=== PATIENT | female | born 1970 | race American Indian/Alaskan Native ===

== ENCOUNTER 2021-04-29 08:12 | Day surgery (SDC) | payer MEDICARE ==
[~2021-04-29 08:12] MED LIST: ACETAMINOPHEN 500 MG TAB PO SCH; LACTATED RINGERS 1,000 ML IV SCH; MIDAZOLAM 2 MG/2 ML INJ IV NR
--- NOTE | 2021-04-29 08:57 | History and Physical Report ---
History of Present Illness Date of examination: 04/29/21 Date of admission: 04/29/21 Chief complaint: post-menopausal bleeding and endometrial polyps. History of present illness: [age] yo AFRO-NAMIBIAN FEMALE . HX OF PMB. UNABLE TO DO HYSTEROSCOPY IN OFFICE.PT HERE FOR OUTPT SX FOR HYSTEROSCOPY AND D&CC. NO ALLERGIES. HX OF BILATERAL CARPAL TUNNEL SX. HX OF HYSTEROSCOPIC REMOVAL OF ENDOMETRIAL POLYPS IN PAST. PT GAVE INFORMED CONSENT FOR HER SX. Past History Past Medical History: no pertinent history, hypertension Past Surgical History: breast surgery, other (BILATERAL CARPAL TUNNEL SX. 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 (HYSTEROSCOPIC REMOVAL OF POLYPS ) Family/Genetic History: none Social history: single Medications and Allergies Allergies Allergy/AdvReac Type Severity Reaction Status Date / Time No Known Allergies Allergy Unverified 04/24/21 18:23 Home Medications Medication Instructions Recorded Confirmed Last Taken Type Bisoprolol Fumarate 5 mg PO DAILY 04/24/21 04/24/21 Unknown History amLODIPine [Norvasc] 10 mg PO DAILY 04/24/21 04/24/21 Unknown History Active Meds: Active Medications Acetaminophen (Acetaminophen 500 Mg Tab) 1,000 mg PO PREOP KAHLIL Stop: 04/29/21 23:00 Lactated Ringer's (Lactated Ringers) 1,000 mls @ 100 mls/hr IV DIRECT KAHLIL Stop: 04/29/21 23:59 Midazolam HCl (Midazolam 2 Mg/2 Ml Inj) 2 mg IV PREOP NR Stop: 04/29/21 23:00 Review of Systems All systems: negative - Vital Signs Vital signs: Vital Signs Temp Pulse Resp BP Pulse Ox 98.2 F 61 20 120/82 99 04/28/21 09:30 04/28/21 09:30 04/28/21 09:30 04/28/21 09:30 04/28/21 09:30 Temp Pulse Resp BP Pulse Ox 98.2 F 61 20 120/82 99 04/28/21 09:30 04/28/21 09:30 04/28/21 09:30 04/28/21 09:30 04/28/21 09:30 - Physical Exam Breasts: Cardiovascular: Regular rate, Normal S1, Normal S2 Abdomen: Positive: normal appearance, soft, normal bowel sounds, other (OBESE). Negative: distention, tenderness Vulva: both: normal Vagina: Positive: normal moisture. Negative: discharge Cervix: Positive: other (STENOTIC CX.). Negative: lesion, discharge Uterus: Positive: normal size, normal contour Adnexa: both: normal Anus/Rectum: Positive: normal perianal skin, heme negative. Negative: rectal mass, hemorrhoids Extremities: Deep Tendon Reflex Grade: Normal +2 Results All other labs normal. Assessment and Plan PMB WITH POLYPS. PLAN D&C AND DIAGNOSTIC HYSTEROSCOPY.
[2021-04-29] MEDS ORDERED: HYDROmorphone 1 MG/1 ML INJ IV PRN (09:07)
[2021-04-29] MEDS ORDERED: ONDANSETRON 4 MG/2 ML INJ IV PRN (09:07)
--- NOTE | 2021-04-29 09:07 | Anesthesia Consultation ---
Anesthesia Consult and Med Hx Date of service: 04/29/21 - Airway Anesthetic Teeth Evaluation: Good ROM Head & Neck: Adequate Mental/Hyoid Distance: Adequate Mallampati Class: Class II Intubation Access Assessment: Probably Good - Pre-Operative Health Status ASA Pre-Surgery Classification: ASA2 Proposed Anesthetic Plan: General - Pulmonary Hx Smoking: Yes (quit 3 months) Hx Respiratory Symptoms: No Hx Sleep Apnea: No (no current diagosis but has sleep study scheduled) - Cardiovascular System Hx Hypertension: Yes (took amlodipine this morning) Hx Heart Attack/AMI: No - Central Nervous System CVA: No - Endocrine Hx Renal Disease: No Hx Liver Disease: No Hx Insulin Dependent Diabetes: No Hx Non-Insulin Dependent Diabetes: No Hx Thyroid Disease: No - Other Systems Hx Obesity: Yes (BMI 35) - Additional Comments Anesthesia Medical History Comments: No hx anesthetic complications.
--- NOTE | 2021-04-29 09:07 | Anesthesia Day of Surgery ---
Anesthesia Day of Surgery - Day of Surgery Patient Examined: Yes Patient H&P Reviewed: Yes Patient is NPO: Yes
[2021-04-29] MEDS ORDERED: diphenhydrAMINE 50 MG/ML VIAL IV SCH (09:49)
[2021-04-29] MEDS ORDERED: SILVER NITRATE APPLICATOR 1 EA TP ONE (10:31)
[2021-04-29] MEDS ORDERED: HYDROmorphone 1 MG/1 ML INJ ONE (10:35)
[2021-04-29] MEDS ORDERED: propofoL 200 MG/20 ML VIAL IV ONE (10:36)
[2021-04-29] MEDS ORDERED: LIDOCAINE MPF (2%) 20 MG/1 ML VIAL 5 ML ONE (10:36)
[2021-04-29] MEDS ORDERED: dexAMETHasone 20 MG/5 ML VIAL ONE (11:02)
[2021-04-29] MEDS ORDERED: ONDANSETRON 4 MG/2 ML INJ ONE (11:03)
[2021-04-29] MEDS ORDERED: MANNITOL/SORBITOL SOLUTION 3,000 ML IRRIG.SOLN IR ONE (11:12)
[2021-04-29] MEDS ORDERED: KETOROLAC 30 MG/1 ML INJ ONE (11:25)
--- NOTE | 2021-04-29 11:33 | Procedure Note ---
Date of procedure: 04/29/21 Pre-op diagnosis: PMB, ENDOMETRIAL POLYPS Post-op diagnosis: same Procedure: This is Dr. Molina dictating operative report on the patient. Time of surgery was 15 minutes. Preoperative diagnosis postmenopausal bleeding endometrial polyps. Postoperative diagnosis same. Procedure was a diagnostic hysteroscopy exam under anesthesia. Anesthesia was LMA. Estimated blood loss less than 50 cc. Complications we had a perforation of the uterus with the hysteroscope so we could not complete the hysteroscopy. Findings the patient was found to have a slightly enlarged uterus. Because of the perforation were not able to visualize the endometrial cavity. We also could not do a D&C at this time. Procedure patient was taken operating placed in supine position given general anesthetic with LMA. The one-sided speculum placed inside the vagina cervix was grasped with a single-tooth tenaculum then dilated up enough to tolerate a operative hysteroscope. We placed the hysteroscope inside the endocervical cavity and we tried to place the hysteroscope into the endometrial cavity however trying to do this perforated the posterior uterus with the hysteroscope hysteroscopy was terminated were not able to do endometrial inspection and we could not do a D&C on this patient. The patient tolerated procedure well without any difficulties. Anesthesia: other (LMA) Surgeon: FELICITAS MOLINA Estimated blood loss: minimal Pathology: none Condition: stable Disposition: same day
--- NOTE | 2021-04-29 12:46 | Post Anesthesia Evaluation ---
- Post Anesthesia Evaluation Patient Participated: Yes Airway Patent: Yes Stable Respiratory Function: Yes Nausea/Vomiting: No Temp > 96.8F: Yes Pain Manageable: Yes Adequeate Hydration: Yes Anesthesia Complications: No
[2021-04-29 12:51] VITALS: BP 127/80
== END 2021-04-29 13:05 | disposition home or self-care (01) ==
LOC: OR 08:12 → EDBD 10:30 → OR 13:05
DX: N95.0 Postmenopausal bleeding (principal); N84.0 Polyp of corpus uteri; I10 Essential (primary) hypertension; E66.9 Obesity, unspecified; K21.9 Gastro-esophageal reflux disease without esophagitis; M19.90 Unspecified osteoarthritis, unspecified site; F17.210 Nicotine dependence, cigarettes, uncomplicated; Z79.899 Other long term (current) drug therapy; Z98.890 Other specified postprocedural states; Z20.822 Contact with and (suspected) exposure to COVID-19
CPT/HCPCS: 58558; J1100; J1170; J1200; J1885; J2250; J2405; J2704; J7120; U0003

== ENCOUNTER 2021-11-04 23:21 | Emergency (ER) | payer MEDICARE ==
[2021-11-05 00:03] VITALS: BP 116/69
== END 2021-11-05 07:00 | disposition left against medical advice (07) ==
LOC: ED 23:21
DX: H92.09 Otalgia, unspecified ear (principal); Z53.21 Procedure and treatment not carried out due to patient leaving prior to being seen by health care provider

== ENCOUNTER 2022-04-11 08:46 | Emergency (ER) | payer MEDICARE ==
[2022-04-11 09:06] VITALS: BP 111/72
--- NOTE | 2022-04-11 09:44 | XRay Report ---
CHEST 2 VIEWS INDICATION / CLINICAL INFORMATION: short of breath. COMPARISON: None available. FINDINGS: SUPPORT DEVICES: None. HEART / MEDIASTINUM: No significant abnormality. LUNGS / PLEURA: No significant pulmonary or pleural abnormality. No pneumothorax. ADDITIONAL FINDINGS: No significant additional findings. IMPRESSION: 1. No acute findings. Signer Name: Cm Meadows MD Signed: 04/11/2022 9:40 AM Workstation Name: [email or web address]
[2022-04-11 09:48] LABS: Mucus,Urine 3+ /HPF; RBC,Urine < 1.0 /HPF (0.0-6.0); WBC,Urine < 1.0 /HPF (0.0-6.0)
[2022-04-11 09:54] LABS: Color,Urine Yellow (Yellow)
== END 2022-04-12 09:50 | disposition left against medical advice (07) ==
LOC: ED 08:46
DX: R06.02 Shortness of breath (principal); Z53.21 Procedure and treatment not carried out due to patient leaving prior to being seen by health care provider
CPT/HCPCS: 71046; 81001